=== PATIENT | male | born 1990 ===

== ENCOUNTER 2018-01-22 22:29 | Emergency (ER) | payer BC ==
[2018-01-22 22:39] VITALS: BP 136/77; PULSE 98; RESP 20; TEMP 99.2; O2SAT 99
[2018-01-22] MEDS ORDERED: Epinephrine /Lidocaine HCL 1:100,000/2% 30 ml INJ STA (23:01)
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
== END 2018-01-22 23:52 | disposition home or self-care (01) ==
LOC: C.ER 22:29
DX: S01.81XA Laceration without foreign body of other part of head, initial encounter (principal); W26.0XXA Contact with knife, initial encounter